=== PATIENT | female | born 1985 | race Caucasian/White ===

== ENCOUNTER 2017-08-14 04:08 | Inpatient (IN) | payer OTHER ==
[2017-08-14 04:50] LABS: #Basophils 0.1 thou/uL (0.0-0.2); #Lymphocytes 2.1 thou/uL (1.20-3.40); #Monocytes 0.5 thou/uL (0.11-0.59); #Neutrophils 5.8 thou/uL (1.40-6.50); %Basophils 0.6 % (0.0-1.0); %Eosinophils 0.2 % (0.0-10.0); %Lymphocytes 25.1 % (21.0-51.0); %Monocytes 5.6 % (0.0-10.0); %Neutrophils 68.6 % (42.0-75.0); Mean Corpuscular HGB CONC 34.5 g/dL (32.0-36.0); Mean Corpuscular Hemoglobin 30.9 pg (27.0-31.0); Mean Corpuscular Volume 89.5 fl (81.0-99.0); Platelet Count 346 thou/uL (130-400); Red Blood Cell (RBC) Count 3.57 mill/uL (4.20-5.40); White Blood Cell (WBC) Count 8.4 thou/uL (4.8-10.8)
[2017-08-14 05:00] LABS: ALT (SGPT) 10 U/L (8-55); AST (SGOT) 18 U/L (5-34); Albumin 3.7 g/dL (3.5-5.0); Alkaline Phosphatase 108 U/L (40-150); Anion Gap 13 mmol/L (10-20); BUN (Urea Nitrogen) 15 mg/dL (7.0-18.7); Bilirubin, Total 0.5 mg/dL (0.2-1.2); Calc. Creatinine Clearance 0 mL/min (70-130); Calcium 8.5 mg/dL (7.8-10.44); Carbon Dioxide 20 mmol/L (22-29); Chloride 107 mmol/L (98-107); Estimated GFR-MDRD 81; Glucose 106 mg/dL (70-105); Potassium 3.2 mmol/L (3.5-5.1); Protein, Total 6.7 g/dL (6.0-8.3); Sodium 137 mmol/L (136-145)
[2017-08-14 05:03] LABS: CKMB 2.2 ng/mL (0-6.6); Troponin I 0.038 ng/mL (< 0.028)
[2017-08-14 05:03] LABS: BHCG - Serum Negative (NEGATIVE); Pregs Control Background? CLEAR/WHITE (CLR/WHITE); Pregs Control Bar Appear? YES (CONTROL BAR)
[2017-08-14] MEDS ORDERED: Potassium Chloride 20 MEQ TAB ONE ×2 (05:24→11:29)
[2017-08-14] MEDS ORDERED: Acetaminophen 500 MG TAB ONE (05:43)
[2017-08-14] MEDS ORDERED: Sodium Chloride 0.9% 100 ML ONE (06:11)
[2017-08-14] MEDS ORDERED: Piperacillin/Tazobactam 4.5 GM VIAL ONE (06:11)
--- NOTE | 2017-08-14 08:57 | RAD ---
CHEST 1 VIEW: Date: 08/14/17 HISTORY: Chest pain. FINDINGS: Cardiac silhouette is magnified and upper limits of normal in size. Pulmonary vasculature is engorged with multifocal ill-defined patchy infiltrates throughout each lung, most pronounced at the right jennifer ng base. Small amount of right pleural fluid is apparent. Mediastinum is midline. No evidence of pneu mothorax. IMPRESSION: Borderline pulmonary vascular congestion with multifocal patchy infiltrates. Please see separate repo rt regarding CT chest performed on the same date. POS: [facility]
[2017-08-14] MEDS ORDERED: Senokot 8.6 MG TAB PO PRN (09:20)
[2017-08-14] MEDS ORDERED: Mag-Al 1200 mg/1200 mg/30 ML UDCUP PO PRN (09:20)
[2017-08-14] MEDS ORDERED: Chloraseptic Spray 180 ml Bottle PO PRN (09:20)
[2017-08-14] MEDS ORDERED: Sodium Chloride 0.65% Nasal 44 ML BOT EA NARE PRN (09:20)
[2017-08-14] MEDS ORDERED: Eucerin (Mineral Oil/Petrolatum,White) 30 gm Jar TOP PRN (09:20)
[2017-08-14] MEDS ORDERED: Loratadine 10 MG TAB PO PRN (09:20)
[2017-08-14] MEDS ORDERED: Ondansetron HCl/PF 4 MG/2 ML Vial IVP PRN (09:20)
[2017-08-14] MEDS ORDERED: Loperamide HCl 2 MG CAP PO PRN (09:20)
[2017-08-14] MEDS ORDERED: Artificial Tears 18 DROP/0.9 ML EA EYE PRN (09:20)
[2017-08-14] MEDS ORDERED: Ondansetron ODT 4 MG TAB PO PRN (09:20)
[2017-08-14] MEDS ORDERED: Diabetic Tussin 200 MG/10 ML UDCUP PO PRN (09:20)
[2017-08-14] MEDS ORDERED: Zolpidem Tartrate 5 MG TAB PO PRN (09:20)
[2017-08-14] MEDS ORDERED: Labetalol HCl 100 MG/20 ML VIAL SLOW IVP PRN (09:20)
[2017-08-14] MEDS ORDERED: Milk Of Magnesia 30 ML UDCUP PO PRN (09:20)
[2017-08-14] MEDS ORDERED: Acetaminophen 325 MG TAB PO PRN (09:20)
[2017-08-14] MEDS ORDERED: HYDROcodone/Acetaminophen 5/325 mg Tablet PO PRN (09:20)
[2017-08-14] MEDS ORDERED: Enoxaparin Sodium 40 MG/0.4 ML SYRINGE SC SCH (10:00)
[2017-08-14] MEDS ORDERED: Prenatal Vitamin 1 TAB PO SCH (10:00)
[2017-08-14] MEDS ORDERED: Potassium Chloride 20 MEQ TAB PO SCH ×2 (10:00→18:45)
[2017-08-14] MEDS ORDERED: Famotidine 20 MG TAB PO SCH (10:00)
[2017-08-14 10:10] LABS: Bilirubin Negative (Negative); Blood, Urine Small (Negative); Clarity CLEAR (Clear); Glucose, Urine (Dipstick) Negative (Negative); Leukocyte Negative (Negative); Nitrite Negative (Negative); Protein, Urine (Dipstick) Negative (Neg-Trace); Urobilinogen 0.2 mg/dL (0.2-1.0)
[2017-08-14 10:13] LABS: Bacteria/HPF None Seen HPF (None Seen); Hyaline Casts/LPF 0-3 HYALINE CAST LPF (0-3 Hyaline); RBC/HPF 0-3 HPF (0-3); Squamous Epithelial None Seen HPF (0-3); WBC/HPF 0-3 HPF (0-3)
[2017-08-14 10:14] LABS: Specific Gravity, Urine 1.055 (1.002-1.036)
[2017-08-14] MEDS ORDERED: Enoxaparin Sodium 40 MG/0.4 ML SYRINGE ONE (11:29)
[2017-08-14] MEDS ORDERED: Famotidine 20 MG TAB ONE (11:29)
--- NOTE | 2017-08-14 11:29 | CT ---
PRELIMINARY REPORT/[facility]/EMERGENTY AFTER-HOURS PROCEDURE CT Angiography Chest With Intravenous Contrast CLINICAL HISTORY: 31 years old, female; Pain; Chest pain; Patient HX: Pt reports chest pain x 1.5 weeks. Worse tonight with inspiration. Pt reports "when i laid down i felt like i was going to drown. " no history of card iac problems. Pt is 3 weeks post . Pt reports subjective fever. TECHNIQUE: Axial computed tomographic angiography images of the chest with intravenous contrast using pulmonary embolism protocol. MIP reconstructed images were created and reviewed. Oblique reformatted images wer e created and reviewed. COMPARISON: No relevant prior studies available. FINDINGS: Pulmonary arteries: No pulmonary embolism. Aorta: Unremarkable. Inferior vena cava: Reflux of contrast in the IVC and hepatic veins. Lungs: Right greater than left patchy groundglass opacities throughout the lung parenchyma. Pleural space: Small bilateral pleural effusions. No pneumothorax. Heart: Unremarkable. Bones/joints: No acute fracture. No dislocation. Soft tissues: Unremarkable. Lymph nodes: No enlarged lymph nodes. IMPRESSION: 1. No evidence of pulmonary thromboembolism. 2. Right greater than left patchy ground glass opacities throughout the lung parenchyma. The differen tial diagnosis for ground glass opacity is extensive and includes pulmonary edema and hemorrhage, int erstitial pneumonias (UIP, DIP, LIP, and acute), hypersensitivity pneumonia, atypical infectious pneumonias such as Pneumocystis carinii, mycoplasma, or CMV pneumonia, and cryptogenic org anizing pneumonia. Correlate clinically. 3. Small bilateral pleural effusions. Thank you for allowing us to participate in the care of your patient. Dictated and Authenticated by: Paulo Saab MD 08/14/2017 5:10 AM Central Time ([place] & [place]) FINAL REPORT EMERGENCY AFTER HOURS CT ARTERIOGRAM CHEST WITH IV CONTRAST AND 3D MIP IMAGING: Date: 08/14/17 Time: 0452 hours HISTORY: Chest pain. Dyspnea. FINDINGS: Findings agree with the preliminary report by [facility]. There is no CT evidence of pulmonary embolus. Mul tifocal pneumonitis is confirmed. Small bilateral pleural effusions. POS: [facility]
--- NOTE | 2017-08-14 11:45 | HP ---
PRIMARY CARE PHYSICIAN: [facility] call admission. REASON FOR ADMISSION: Increasing shortness of breath, hypoxia, tachycardia (new onset car diomyopathy, suspected pneumonia). HISTORY OF PRESENT ILLNESS: A 31-year-old female, who has past medical history of depression. She h ad normal vaginal delivery on 07/26/2017. Subsequently, the patient started feeling increasing short ness of breath. She was getting out of breath after walking a few distances. She started also feeli ng orthopnea and she was waking up with shortness of breath for the last 2 to 3 days. Her condition was kept getting worse. She was having cough productive of scant amount of sputum. She denies any l ower extremity edema. She denies any calf tenderness. She denies any chest pain or pleurisy. She d enies any fever or chills. She denies any flu-like illness. She denies any sick exposure or recent travel. She denies any syncopal episode. She denies any UTI symptoms. She denies any constipation, diarrhea , melena or hematochezia. In the emergency room, this patient was tachycardic and tachypneic as well as mildly hypoxic. She wa s hypertensive. She had a chest x-ray in the emergency room, which showed pulmonary vascular congest ion and multifocal patchy infiltration. CT angio was performed, which showed no evidence of pulmonar y embolism, but patchy ground glass opacity throughout the lung parenchyma. The patient was given va ncomycin and Zosyn in the emergency room for suspected pneumonia. The patient had potassium low and potassium chloride was also given orally and she was given some IV fluid. When I saw this patient, a t that time, the patient was having tachycardia. She was maintaining saturation with nasal cannula a nd she was vitals lara stable. Her BNP is also elevated. She is afebrile. At that point, we decide d to change her status from IMCU admission to telemetry floor. ALLERGIES: No known drug allergy. CURRENT HOME MEDICATIONS: vitamin 1 tablet p.o. daily, Zoloft 25 mg p.o. daily, Motrin 800 mg q.8 hourly. p.r.n., and Tylenol #3 one tablet q.4 hourly p.r.n. REVIEW OF SYSTEMS: The following complete review of systems was negative, unless otherwise mentioned in the HPI or below: Constitutional: Weight loss or gain, ability to conduct usual activities. Skin: Rash, itching. Eyes: Double vision, pain. ENT/Mouth: Nose bleeding, neck stiffness, pain, tenderness. Cardiovascular: Palpitations, dyspnea on exertion, orthopnea. Respiratory: Shortness of breath, wheezing, cough, hemoptysis, fever or night sweats. Gastrointestinal: Poor appetite, abdominal pain, heartburn, nausea, vomiting, constipation, or diarr hea. Genitourinary: Urgency, frequency, dysuria, nocturia. Musculoskeletal: Pain, swelling. Neurologic/Psychiatric: Anxiety, depression. Allergy/Immunologic: Skin rash, bleeding tendency. Please see my HPI for pertinent positive and negative. All other review of systems reviewed and nega tive except as mentioned in the HPI. PAST MEDICAL HISTORY: Mitral valve prolapse, hypertension and borderline diabetes during . PAST SURGICAL HISTORY: Reviewed and negative. PAST PSYCHIATRIC HISTORY: Anxiety and depression. SOCIAL HISTORY: The patient is . She lives at home with her . She smokes about half pack per day. She denies any alcohol or other illicit drug abuse. OBSTETRICAL/GYNECOLOGICAL HISTORY: The patient had total five pregnancies. She has total of 3 kids alive and 2 miscarriages. FAMILY HISTORY: No strong family history of premature coronary artery disease, stroke or cancer. EMERGENCY ROOM COURSE: The patient has received vancomycin, Zosyn, IV fluid, and potassium chloride. PHYSICAL EXAMINATION: VITAL SIGNS: On arrival, blood pressure 120/104, pulse 118, respiratory rate 24, temperature 99.6, s aturation 95% on 3 liter oxygen. Weight 58 kilograms. GENERAL: The patient is currently alert, awake, tachypneic, tachycardic, hypertensive, no obvious ac karina distress. HEENT: Head: Normocephalic, atraumatic. Eyes: Pupils round, reactive to light. Extraocular muscl es are intact. ENT: Oropharynx within normal limits. Moist mucous membranes. No oral lesion, no p haryngeal erythema, no exudate. NECK: Supple, no JVD, no thyromegaly, no carotid bruit, no jugular venous distention. LUNGS: Bibasilar rales noted, coarse breath sounds. No wheezing, no rhonchi. CARDIAC: S1, S2 regular, tachycardia, soft systolic murmur present. ABDOMEN: Soft, bowel sounds present, nontender, nondistended. No organomegaly, no mass, no suprapub ic tenderness. BACK: Unremarkable, no CVA tenderness. EXTREMITIES: Upper extremity: Passive movements of all joints are normal. Lower extremities: No e ava, no calf tenderness. Good distal pulsation. SKIN: No skin rash. HEMATOLOGIC: No lymphadenopathy. PSYCHIATRIC: Normal affect. SIGNIFICANT LABS: EKG showing sinus tachycardia, nonspecific ST-T changes in inferolateral lead. Ch est x-ray showing pulmonary vascular congestion, multifocal infiltration. CT angio showing no eviden ce of PE, ground glass opacity throughout the lung parenchyma. CBC: WBC 8.4, hemoglobin 11.0, platelets 346, ESR is 41. D-dimer is 0.86. BMP: Sodium 137, potassium 3.2, chloride 107, carbon dioxide 20, BUN 15, creatinine 0.82, glucose 10 6, calcium 8.5. LFT: AST 18, ALT 10, alkaline phosphatase 108, albumin 3.7, CK-MB 2.2. Troponin I is 0.038, then 0. 040. CRP is 2.35. BNP is 1642, magnesium 1.7. Urinalysis is unremarkable. ASSESSMENT AND PLAN: 1. New onset cardiomyopathy. At this point, this patient has a classic history of dyspne a on exertion, orthopnea, paroxysmal nocturnal dyspnea, as well as elevated BNP. The patient's chest x-ray also showing pulmonary vascular congestion and CT chest also supports pulmonary vascular conge stion. She has elevated BNP and based on appropriate clinical scenario, we are suspecting cardiomyopathy. We will obtain echocardiography to assess ejection fraction and other structural ab normality. This patient will be treated with Lasix 20 mg IV b.i.d. We will monitor weight, renal fu nction and electrolytes, and replace accordingly. Depending upon echocardiographic finding, we will consider Cardiology evaluation. We will monitor on telemetry floor. 2. Elevated troponin, likely due to demand ischemia. We will do total 3 sets of cardiac enzymes. W e will continue aspirin 81 mg p.o. daily. Echocardiography will be done. We will check lipid profil e tomorrow morning for risk stratification. 3. Hypokalemia. Magnesium checked and it is normal. We will replace potassium chloride 20 mEq p.o. daily and replace more if needed. 4. Anemia, normocytic, normochromic. We will continue vitamin daily while in the hospital. 5. Anxiety and depression. Continue Zoloft 50 mg p.o. daily. 6. Elevated D-dimer, but negative CT angio. 7. Suspected pneumonia. We will continue Zosyn 3.375 grams IV q.6 hourly. 8. Deep venous thrombosis prophylaxis, Lovenox 40 mg subcu daily. 9. Gastrointestinal prophylaxis, Pepcid 20 mg p.o. b.i.d. 9. Code status: The patient is FULL CODE. The patient's is surrogate decision maker. 10. Tobacco abuse disorder. Smoking cessation counseling given. We will offer nicotine patch if ne eded. Disposition plan based on clinical course. We are expecting the patient's stay in hospital more than 2 midnights. Plan of care discussed with the patient in detail.
[2017-08-14] MEDS: Piperacillin/Tazobactam 3.375 GM in Sodium Chloride 0.9% 100 ML IVPB SCH ×3 (12:07→23:10)
[2017-08-14 12:12] VITALS: BMI 21.7
[2017-08-14 13:27] LABS: Troponin I 0.029 ng/mL (< 0.028)
[2017-08-14] MEDS: Furosemide 20 MG/2 ML VIAL SLOW IVP SCH ×2 (13:28→23:10)
[2017-08-14] MEDS ORDERED: ISOVUE-370 76%-LOCM 1 ML ONE (14:35)
[2017-08-14] MEDS: Nicotine 21 MG PATCH TOP SCH (17:15)
--- NOTE | 2017-08-14 18:42 | PDOC.CTH ---
Cardiology Progress Note - Objective Vital Signs Temp Pulse Resp BP Pulse Ox 08/14/17 16:36 98.6 F 75 16 130/91 H 94 L 08/14/17 12:16 97.8 F 61 20 96 08/14/17 12:00 97.8 F 122 H 20 129/87 96 Weight 114 lb 10.246 oz 08/13/17 08/14/17 08/15/17 06:59 06:59 06:59 Intake Total 680 Output Total 1550 Balance -870 - Labs Result Diagrams: 08/14/17 04:44 08/14/17 04:44 Troponin/CKMB CK-MB (CK-2) 2.2 ng/mL (0-6.6) 08/14/17 04:44 Troponin I 0.029 ng/mL (< 0.028) H 08/14/17 12:47 - Assessment/Plan <Progress note> Echo result showed EF 10-15%. Lasix was increased to 20mg IV TID. Also Lasix 20mg IV and Kcl 20mEq x 1 now. Plan to start BBlocker and SANDRA when the pt receive baby formula to feed her new-born baby.
[2017-08-14] MEDS ORDERED: Furosemide 20 MG/2 ML VIAL SLOW IVP SCH (18:45)
[2017-08-14] MEDS: Famotidine 20 MG TAB PO SCH (20:07)
[2017-08-14] MEDS: Lisinopril 2.5 MG TAB PO SCH (20:08)
[2017-08-14] MEDS ORDERED: Carvedilol 3.125 MG TAB PO SCH (21:00)
[2017-08-15] MEDS: Piperacillin/Tazobactam 3.375 GM in Sodium Chloride 0.9% 100 ML IVPB SCH (05:24)
[2017-08-15] MEDS: Furosemide 20 MG/2 ML VIAL SLOW IVP SCH ×3 (05:24→14:10)
[2017-08-15 05:34] LABS: #Lymphocytes 2.5 thou/uL (1.20-3.40); #Monocytes 0.7 thou/uL (0.11-0.59); #Neutrophils 3.3 thou/uL (1.40-6.50); %Basophils 0.7 % (0.0-1.0); %Eosinophils 0.7 % (0.0-10.0); %Lymphocytes 37.8 % (21.0-51.0); %Monocytes 10.2 % (0.0-10.0); %Neutrophils 50.5 % (42.0-75.0); Hemoglobin 10.7 g/dL (12.0-16.0); Mean Corpuscular HGB CONC 33.4 g/dL (32.0-36.0); Mean Corpuscular Hemoglobin 30.1 pg (27.0-31.0); Mean Corpuscular Volume 90.4 fl (81.0-99.0); Mean Platelet Volume 7.2 fL (7.4-10.4); Platelet Count 323 thou/uL (130-400); RBC Distribution Width 13.8 % (11.5-14.5); Red Blood Cell (RBC) Count 3.56 mill/uL (4.20-5.40); White Blood Cell (WBC) Count 6.5 thou/uL (4.8-10.8)
[2017-08-15 05:43] LABS: ALT (SGPT) 9 U/L (8-55); AST (SGOT) 12 U/L (5-34); Albumin 3.5 g/dL (3.5-5.0); Alkaline Phosphatase 97 U/L (40-150); Anion Gap 11 mmol/L (10-20); BUN (Urea Nitrogen) 13 mg/dL (7.0-18.7); Bilirubin, Total 0.5 mg/dL (0.2-1.2); Calc. Creatinine Clearance 74 mL/min (70-130); Calcium 8.4 mg/dL (7.8-10.44); Carbon Dioxide 23 mmol/L (22-29); Chloride 106 mmol/L (98-107); Estimated GFR-MDRD 73; Globulin 2.8 g/dL (2.4-3.5); Glucose 102 mg/dL (70-105); Magnesium 1.8 mg/dL (1.6-2.6); Potassium 3.4 mmol/L (3.5-5.1); Protein, Total 6.3 g/dL (6.0-8.3); Sodium 137 mmol/L (136-145); Uric Acid 3.5 mg/dL (2.6-6.0)
[2017-08-15] MEDS: Enoxaparin Sodium 40 MG/0.4 ML SYRINGE SC SCH (08:14)
[2017-08-15] MEDS: Prenatal Vitamin 1 TAB PO SCH (08:14)
[2017-08-15] MEDS: Carvedilol 3.125 MG TAB PO SCH ×2 (08:14→16:12)
[2017-08-15] MEDS: Famotidine 20 MG TAB PO SCH ×2 (08:14→19:50)
[2017-08-15] MEDS: Magnesium Oxide 400 MG TAB PO SCH (08:15)
[2017-08-15] MEDS: Saccharomyces boulardii 250 MG CAP PO SCH (08:15)
[2017-08-15] MEDS: Potassium Chloride 20 MEQ TAB PO SCH (08:15)
[2017-08-15] MEDS ORDERED: Amoxicillin/Potassium Clav 875 MG TAB PO SCH (09:00)
--- NOTE | 2017-08-15 09:47 | PDOC.PN ---
- Subjective Encounter Start Date: 08/15/17 Encounter Start Time: 08:30 -: old records requested/rev Patient seen and examined. No new complaints. No overnight events less dyspnea, no fever, no chest pain - Objective Resuscitation Status: Resuscitation Status FULL:Full Resuscitation MAR Reviewed: Yes Vital Signs & Weight: Vital Signs (12 hours) Temp Pulse Resp BP BP Pulse Ox 08/15/17 08:07 97.9 F 106 H 16 110/73 96 08/15/17 03:51 97.9 F 100 18 113/74 97 Weight Weight 4.144 oz I&O: 08/14/17 08/15/17 08/16/17 06:59 06:59 06:59 Intake Total 680 Output Total 1550 Balance -870 Result Diagrams: 08/15/17 05:04 08/15/17 05:04 Radiology Reviewed by me: Yes (echo- low EF) EKG Reviewed by me: Yes (sinus tachycardia) Phys Exam - Physical Examination Constitutional: NAD HEENT: PERRLA, moist MMs, sclera anicteric Neck: no JVD, supple Respiratory: no wheezing, no rhonchi basal rales Cardiovascular: RRR, no significant murmur, no rub Gastrointestinal: soft, non-tender, no distention, positive bowel sounds Musculoskeletal: no edema, pulses present Neurological: non-focal, normal sensation, moves all 4 limbs Psychiatric: normal affect, A&O x 3 Skin: no rash, normal turgor Dx/Plan (1) Acute systolic heart failure Code(s): I50.21 - ACUTE SYSTOLIC (CONGESTIVE) HEART FAILURE Status: Acute (2) Demand ischemia of myocardium Code(s): I24.8 - OTHER FORMS OF ACUTE ISCHEMIC HEART DISEASE Status: Acute (3) Hypokalemia Code(s): E87.6 - HYPOKALEMIA Status: Acute (4) cardiomyopathy Code(s): O90.3 - PERIPARTUM CARDIOMYOPATHY Status: Acute (5) Anemia, normocytic normochromic Code(s): D64.9 - ANEMIA, UNSPECIFIED Status: Chronic (6) Anxiety and depression Code(s): F41.9 - ANXIETY DISORDER, UNSPECIFIED; F32.9 - MAJOR DEPRESSIVE DISORDER, SINGLE EPISODE, UNSPECIFIED Status: Chronic (7) Tobacco abuse Code(s): Z72.0 - TOBACCO USE Status: Chronic (8) Multifocal pneumonia Code(s): J18.9 - PNEUMONIA, UNSPECIFIED ORGANISM Status: Suspected - Plan cont current plan of care, plan discussed w/ family, continue antibiotics * continue lasix * added coreg and lisinopril * will add aldactone * replace potassium * repeat labs tomorrow * cardiac rehab * medication reviewed as below * symptomatic treatment * DC zosyn * start augmentin. Review of Systems - Review of Systems Constitutional: negative: fever, chills, sweats, weakness, malaise, other ENT: negative: Ear Pain, Ear Discharge, Nose Pain, Nose Discharge, Nose Congestion, Mouth Pain, Mouth Swelling, Throat Pain, Throat Swelling, Other Respiratory: Shortness of Breath, SOB with Excertion. negative: Cough, Dry, Hemoptysis, Pleuritic Pain, Sputum, Wheezing Cardiovascular: orthopnea. negative: chest pain, palpitations, paroxysmal nocturnal dyspnea, edema, light headedness, other Gastrointestinal: negative: Nausea, Vomiting, Abdominal Pain, Diarrhea, Constipation, Melena, Hematochezia, Other Genitourinary: negative: Dysuria, Frequency, Incontinence, Hematuria, Retention , Other Musculoskeletal: negative: Neck Pain, Shoulder Pain, Arm Pain, Back Pain, Hand Pain, Leg Pain, Foot Pain, Other Skin: negative: Rash, Lesions, Valeriy, Bruising, Other - Medications/Allergies Allergies/Adverse Reactions: Allergies Allergy/AdvReac Type Severity Reaction Status Date / Time No Known Drug Allergies Allergy Verified 08/14/17 09:33 Medications: Current Medications Acetaminophen (Tylenol) 650 mg PO Q4H PRN PRN Reason: Headache/Fever or Pain Last Admin: 08/14/17 18:20 Dose: 650 mg Hydrocodone Bitart/Acetaminophen ([place] 5/325) 1 tab PO Q4H PRN PRN Reason: Moderate Pain (4-6) Last Admin: 08/14/17 23:13 Dose: 1 tab Al Hydroxide/Mg Hydroxide (Maalox) 30 ml PO Q6H PRN PRN Reason: Heartburn or Indigestion Amoxicillin/Clavulanate Potassium (Augmentin) 875 mg PO Q12HR [facility] Last Admin: 08/15/17 08:13 Dose: 875 mg Artificial Tears (Tears Naturale) 0 drop EA EYE PRN PRN PRN Reason: Dry Eyes Aspirin (Aspirin Chewable) 81 mg PO DAILY [facility] Last Admin: 08/15/17 08:14 Dose: 81 mg Carvedilol (Coreg) 3.125 mg PO BID-[facility] Last Admin: 08/15/17 08:14 Dose: 3.125 mg Enoxaparin Sodium (Lovenox) 40 mg SC 0900 [facility] Last Admin: 08/15/17 08:14 Dose: 40 mg Famotidine (Pepcid) 20 mg PO BID [facility] Last Admin: 08/15/17 08:14 Dose: 20 mg Furosemide (Lasix) 20 mg SLOW IVP 0600,1400 [facility] Last Admin: 08/15/17 05:24 Dose: 20 mg Guaifenesin (Robitussin Sf) 200 mg PO Q4H PRN PRN Reason: Cough Labetalol HCl (Normodyne) 10 mg SLOW IVP Q4H PRN PRN Reason: Systolic BP > 180 Lisinopril (Zestril) 2.5 mg PO 2100 [facility] Last Admin: 08/14/17 20:08 Dose: 2.5 mg Loperamide HCl (Imodium) 2 mg PO PRN PRN PRN Reason: Diarrhea/Loose Stools Loratadine (Claritin) 10 mg PO DAILYPRN PRN PRN Reason: Sinus Symptoms Magnesium Hydroxide (Milk Of Magnesium) 30 ml PO DAILYPRN PRN PRN Reason: Constipation Magnesium Oxide (Magnesium Oxide) 400 mg PO DAILY [facility] Last Admin: 08/15/17 08:15 Dose: 400 mg Mineral Oil/White Petrolatum (Eucerin Cream) 0 gm TOP BIDPRN PRN PRN Reason: Dry Skin Nicotine (Nicoderm Patch) 21 mg TOP Q24HR [facility] Last Admin: 08/14/17 17:15 Dose: 21 mg Ondansetron HCl (Zofran Odt) 4 mg PO Q6H PRN PRN Reason: Nausea/Vomiting Ondansetron HCl (Zofran) 4 mg IVP Q6H PRN PRN Reason: Nausea/Vomiting Phenol (Chloraseptic Marine 180 Ml Bot) 0 ml PO PRN PRN PRN Reason: Sore Throat Potassium Chloride (K-Dur) 20 meq PO QAM-[facility] Last Admin: 08/15/17 08:15 Dose: 20 meq Multivit/Folic Acid/Iron ( Vitamin) 1 tab PO DAILY [facility] Last Admin: 08/15/17 08:14 Dose: 1 tab Saccharomyces Boulardii (Florastor) 250 mg PO DAILY [facility] Last Admin: 08/15/17 08:15 Dose: 250 mg Senna (Senokot) 2 tab PO HSPRN PRN PRN Reason: Constipation Sertraline HCl (Zoloft) 50 mg PO DAILY [facility] Last Admin: 08/15/17 08:13 Dose: 50 mg Sodium Chloride ([place]arker Nasal Marine 0.65%) 0 ml EA NARE QIDPRN PRN PRN Reason: Nasal Congestion Zolpidem Tartrate (Ambien) 5 mg PO HSPRN PRN PRN Reason: Insomnia
--- NOTE | 2017-08-15 15:07 | PDOC.CTH ---
<Nelly Wayne - Last Filed: 08/15/17 15:05> Cardiology Progress Note - Subjective The pt seen and examined. No overnight events. She stated she can breath better than yesterday. She denied dizziness or lightheadedness, CP or discomfort in her chest, or other cardiac complaints. - Objective Vital Signs Temp Pulse Pulse Pulse Resp BP BP 08/15/17 12:40 98.9 F 98 16 08/15/17 08:36 94 113 H 123/92 H 119/64 08/15/17 08:07 97.9 F 106 H 16 08/15/17 03:51 97.9 F 100 18 BP BP Pulse Ox Pulse Ox Pulse Ox 08/15/17 12:40 113/67 94 L 08/15/17 08:36 98 94 L 08/15/17 08:07 110/73 96 08/15/17 03:51 113/74 97 Weight 4.144 oz 08/14/17 08/15/17 08/16/17 06:59 06:59 06:59 Intake Total 680 Output Total 1550 Balance -870 - Physical Examination General/Neuro: alert & oriented x3 Neck: no JVD present Heart: RRR Abdomen: soft Extremities: other: (No edema) - Telemetry Telemetry Rhythm: SR 90s - Labs Result Diagrams: 08/15/17 05:04 08/15/17 05:04 Troponin/CKMB CK-MB (CK-2) 2.2 ng/mL (0-6.6) 08/14/17 04:44 Troponin I 0.029 ng/mL (< 0.028) H 08/14/17 12:47 - Assessment/Plan 1. Acute on Chronic Systolic HF - improving with BBlocker, SANDRA, and Spironolactone. cont. to monitor 2. CMY - Echo on 08/14/17 showed EF 10-15%, dilated LV, dilated LA, mild-mod MR, and mild TR. 3. Tachycardia - Remains in SR with HR 80-90s with Coreg 3.125mg BID; cont. to monitor on tele 4. Anemia - slightly decreased today. cont. to monitor 5. HypoKalemia - replaced by her PCP today 6. PNA - on antibiotics by PCP 7. Current smoker - Smoking cessation education given to the pt MAR reviewed * Since she is on SANDRA, she is not breast feeding to her baby. Review of Systems - Review of Systems Constitutional: reports: no symptoms reported EENTM: reports: no symptoms reported Respiratory: reports: no symptoms reported Cardiac (ROS): reports: no symptoms reported ABD/GI: reports: no symptoms reported : reports: no symptoms reported Musculoskeletal: reports: no symptoms reported Skin: reports: no symptoms reported <Jocelyn Chery Demario - Last Filed: 08/15/17 19:49> Cardiology Progress Note - Objective Vital Signs Temp Pulse Pulse Pulse Resp BP BP 08/15/17 16:07 98.2 F 96 16 08/15/17 12:40 98.9 F 98 16 08/15/17 08:36 94 113 H 123/92 H 119/64 08/15/17 08:07 97.9 F 106 H 16 BP Pulse Ox Pulse Ox Pulse Ox 08/15/17 16:07 114/87 97 08/15/17 12:40 113/67 94 L 08/15/17 08:36 98 94 L 08/15/17 08:07 110/73 96 Weight 4.144 oz 08/14/17 08/15/17 08/16/17 06:59 06:59 06:59 Intake Total 680 Output Total 1550 Balance -870 - Labs Result Diagrams: 08/15/17 05:04 08/15/17 05:04 Troponin/CKMB CK-MB (CK-2) 2.2 ng/mL (0-6.6) 08/14/17 04:44 Troponin I 0.029 ng/mL (< 0.028) H 08/14/17 12:47 - Assessment/Plan Pt. was seen and eval by me. She is feeling better and diuresing. Tolerating the meds thus far. She will need a Life-vest prior to discharge.Chest clear, RRR. Severe CMY- presumably post-. I agree with the A/P by the HORTICULTURE/FLORICULTURE TEACHER.
[2017-08-15] MEDS: Nicotine 21 MG PATCH TOP SCH (16:15)
[2017-08-15] MEDS: Lisinopril 2.5 MG TAB PO SCH (19:49)
[2017-08-16] MEDS: Furosemide 20 MG/2 ML VIAL SLOW IVP SCH ×2 (05:11→13:44)
[2017-08-16] MEDS: Magnesium Oxide 400 MG TAB PO SCH (08:51)
[2017-08-16] MEDS: Potassium Chloride 20 MEQ TAB PO SCH (08:51)
[2017-08-16] MEDS: Spironolactone 25 MG TAB PO SCH (08:51)
[2017-08-16] MEDS: Prenatal Vitamin 1 TAB PO SCH (08:51)
[2017-08-16] MEDS: Carvedilol 3.125 MG TAB PO SCH (08:52)
[2017-08-16] MEDS: Saccharomyces boulardii 250 MG CAP PO SCH (08:52)
[2017-08-16] MEDS: Famotidine 20 MG TAB PO SCH ×2 (08:53→20:49)
[2017-08-16] MEDS: Enoxaparin Sodium 40 MG/0.4 ML SYRINGE SC SCH (08:56)
--- NOTE | 2017-08-16 08:58 | PDOC.PN ---
- Subjective Encounter Start Date: 08/16/17 Encounter Start Time: 06:40 Patient seen and examined. No new complaints. No overnight events pt has less dyspnea, less orthopnea, now on room air - Objective Resuscitation Status: Resuscitation Status FULL:Full Resuscitation MAR Reviewed: Yes Vital Signs & Weight: Vital Signs (12 hours) Temp Pulse Resp BP BP Pulse Ox 08/16/17 08:45 97.9 F 92 14 104/75 96 08/16/17 05:34 96 08/16/17 03:56 98.4 F 62 20 140/81 96 08/16/17 03:27 98.0 F 84 25 H 114/77 94 L Weight Weight 115 lb 15.04 oz I&O: 08/15/17 08/16/17 08/17/17 06:59 06:59 06:59 Intake Total 680 240 Output Total 1550 700 Balance -870 -460 Result Diagrams: 08/15/17 05:04 08/15/17 05:04 EKG Reviewed by me: Yes (nsr) Phys Exam - Physical Examination Constitutional: NAD HEENT: PERRLA, moist MMs, sclera anicteric Neck: no JVD, supple Respiratory: no wheezing, no rales, no rhonchi Cardiovascular: RRR, no significant murmur, no rub Gastrointestinal: soft, non-tender, no distention, positive bowel sounds Musculoskeletal: no edema, pulses present Neurological: non-focal, normal sensation, moves all 4 limbs Lymphatic: no nodes Psychiatric: normal affect, A&O x 3 Skin: no rash, normal turgor Dx/Plan (1) Acute systolic heart failure Code(s): I50.21 - ACUTE SYSTOLIC (CONGESTIVE) HEART FAILURE Status: Acute (2) Demand ischemia of myocardium Code(s): I24.8 - OTHER FORMS OF ACUTE ISCHEMIC HEART DISEASE Status: Acute (3) Hypokalemia Code(s): E87.6 - HYPOKALEMIA Status: Acute (4) cardiomyopathy Code(s): O90.3 - PERIPARTUM CARDIOMYOPATHY Status: Acute (5) Anemia, normocytic normochromic Code(s): D64.9 - ANEMIA, UNSPECIFIED Status: Chronic (6) Anxiety and depression Code(s): F41.9 - ANXIETY DISORDER, UNSPECIFIED; F32.9 - MAJOR DEPRESSIVE DISORDER, SINGLE EPISODE, UNSPECIFIED Status: Chronic (7) Tobacco abuse Code(s): Z72.0 - TOBACCO USE Status: Chronic (8) Multifocal pneumonia Code(s): J18.9 - PNEUMONIA, UNSPECIFIED ORGANISM Status: Suspected - Plan cont current plan of care, plan discussed w/ family, continue antibiotics, respiratory therapy * continue lasix, lisinopril, coreg, aldactone * as per cardiology, will need life vest * medication reviewed as below * symptomatic treatment * expecting discharge soon * cardiology following * cardiac rehab. Review of Systems - Review of Systems Eyes: negative: Pain, Vision Change, Conjunctivae Inflammation, Eyelid Inflammation, Redness, Other ENT: negative: Ear Pain, Ear Discharge, Nose Pain, Nose Discharge, Nose Congestion, Mouth Pain, Mouth Swelling, Throat Pain, Throat Swelling, Other Respiratory: negative: Cough, Dry, Shortness of Breath, Hemoptysis, SOB with Excertion, Pleuritic Pain, Sputum, Wheezing Cardiovascular: negative: chest pain, palpitations, orthopnea, paroxysmal nocturnal dyspnea, edema, light headedness, other Gastrointestinal: negative: Nausea, Vomiting, Abdominal Pain, Diarrhea, Constipation, Melena, Hematochezia, Other Genitourinary: negative: Dysuria, Frequency, Incontinence, Hematuria, Retention , Other Musculoskeletal: negative: Neck Pain, Shoulder Pain, Arm Pain, Back Pain, Hand Pain, Leg Pain, Foot Pain, Other Skin: negative: Rash, Lesions, Valeriy, Bruising, Other - Medications/Allergies Allergies/Adverse Reactions: Allergies Allergy/AdvReac Type Severity Reaction Status Date / Time No Known Drug Allergies Allergy Verified 08/14/17 09:33 Medications: Current Medications Acetaminophen (Tylenol) 650 mg PO Q4H PRN PRN Reason: Headache/Fever or Pain Last Admin: 08/14/17 18:20 Dose: 650 mg Hydrocodone Bitart/Acetaminophen ([place] 5/325) 1 tab PO Q4H PRN PRN Reason: Moderate Pain (4-6) Last Admin: 08/14/17 23:13 Dose: 1 tab Al Hydroxide/Mg Hydroxide (Maalox) 30 ml PO Q6H PRN PRN Reason: Heartburn or Indigestion Artificial Tears (Tears Naturale) 0 drop EA EYE PRN PRN PRN Reason: Dry Eyes Aspirin (Aspirin Chewable) 81 mg PO DAILY [place] Last Admin: 08/16/17 08:53 Dose: 81 mg Carvedilol (Coreg) 3.125 mg PO BID-[facility] Last Admin: 08/16/17 08:52 Dose: 3.125 mg Enoxaparin Sodium (Lovenox) 40 mg SC 0900 [facility] Last Admin: 08/16/17 08:56 Dose: 40 mg Famotidine (Pepcid) 20 mg PO BID [facility] Last Admin: 08/16/17 08:53 Dose: 20 mg Furosemide (Lasix) 20 mg SLOW IVP 0600,1400 [facility] Last Admin: 08/16/17 05:11 Dose: 20 mg Guaifenesin (Robitussin Sf) 200 mg PO Q4H PRN PRN Reason: Cough Labetalol HCl (Normodyne) 10 mg SLOW IVP Q4H PRN PRN Reason: Systolic BP > 180 Lisinopril (Zestril) 2.5 mg PO 2100 [facility] Last Admin: 08/15/17 19:49 Dose: 2.5 mg Loperamide HCl (Imodium) 2 mg PO PRN PRN PRN Reason: Diarrhea/Loose Stools Loratadine (Claritin) 10 mg PO DAILYPRN PRN PRN Reason: Sinus Symptoms Magnesium Hydroxide (Milk Of Magnesium) 30 ml PO DAILYPRN PRN PRN Reason: Constipation Magnesium Oxide (Magnesium Oxide) 400 mg PO DAILY [facility] Last Admin: 08/16/17 08:51 Dose: 400 mg Mineral Oil/White Petrolatum (Eucerin Cream) 0 gm TOP BIDPRN PRN PRN Reason: Dry Skin Nicotine (Nicoderm Patch) 21 mg TOP Q24HR [facility] Last Admin: 08/15/17 16:15 Dose: 21 mg Ondansetron HCl (Zofran Odt) 4 mg PO Q6H PRN PRN Reason: Nausea/Vomiting Ondansetron HCl (Zofran) 4 mg IVP Q6H PRN PRN Reason: Nausea/Vomiting Phenol (Chloraseptic Ariton 180 Ml Bot) 0 ml PO PRN PRN PRN Reason: Sore Throat Potassium Chloride (K-Dur) 20 meq PO QAM-[facility] Last Admin: 08/16/17 08:51 Dose: 20 meq Multivit/Folic Acid/Iron ( Vitamin) 1 tab PO DAILY [facility] Last Admin: 08/16/17 08:51 Dose: 1 tab Saccharomyces Boulardii (Florastor) 250 mg PO DAILY [facility] Last Admin: 08/16/17 08:52 Dose: 250 mg Senna (Senokot) 2 tab PO HSPRN PRN PRN Reason: Constipation Sertraline HCl (Zoloft) 50 mg PO DAILY [facility] Last Admin: 08/16/17 08:52 Dose: 50 mg Sodium Chloride (Larimer Nasal Ariton 0.65%) 0 ml EA NARE QIDPRN PRN PRN Reason: Nasal Congestion Spironolactone (Aldactone) 25 mg PO QAM-[facility] Last Admin: 08/16/17 08:51 Dose: 25 mg Zolpidem Tartrate (Ambien) 5 mg PO HSPRN PRN PRN Reason: Insomnia
--- NOTE | 2017-08-16 09:05 | CON ---
DATE OF CONSULTATION: 08/15/2017 REASON FOR CONSULTATION: Pulmonary infiltrates. HISTORY OF PRESENT ILLNESS: A 31-year-old with history of mitral valve prolapse , hypertension, and recent normal vaginal delivery on 07/26/2017 with progressively worsening dyspnea, which exacerbated 2 to 3 days prior to admission associated cough with scant sputum production. No fever, no chest pain. No headaches, no sore throat, odynophagia, dysphagia, no toothache. No abdominal pain or diarrhea. No genitourinary symptoms. On arrival, she was tachypneic and tachycardic, mildly hypoxic, hypertensive. Chest x-ray showed diffuse pulmonary infiltrates. CT angio did not show any evidence of pulmonary embolism. She was given broad spectrum antimicrobial coverage. An echocardiogram showed an ejection fraction of 15%, recently with elevated BNP. The patient has been managed with IV diuresis and Cardiology has been consulted. They are going to start beta blockers and SANDRA inhibitors as soon as the patient received the baby formula to feed her baby. Currently, she is much more comfortable, her two kids are in the bed with her. REVIEW OF SYSTEMS: A 10-point review of systems shows improvement in dyspnea. Other areas of the review of systems are negative. PAST MEDICAL HISTORY: Gestational diabetes, hypertension, and mitral valve prolapse. PAST SURGICAL HISTORY: Negative. SOCIAL HISTORY: She is . [place] works, but they were behind in payments of their rent they made a payment, but the landlord evicted them from their apartment [place] She smokes, trying to quit. No alcoholic beverage or illicit drug use. FAMILY HISTORY: Noncontributory. CURRENT MEDICATIONS: Include hydrocodone, Maalox, Augmentin, aspirin, Coreg, Lovenox, Pepcid, Robitussin, , Imodium, Claritin, magnesium, Zofran, Chloraseptic, Senokot, Zoloft, lisinopril, furosemide, spironolactone, Ambien. PHYSICAL EXAMINATION: VITAL SIGNS: T-max 99, blood pressure 114/87, pulse is 96, respiration 16, O2 sat 97%. GENERAL: There is no distress. SKIN: Normal. Peripheral IV access. The patient is voiding spontaneously. HEENT: Noncontributory. NECK: No jugular vein distention. LUNGS: With faint basilar crackles. HEART: S1, S2, regular rate without S3. ABDOMEN: Soft, not distended or tender. EXTREMITIES: No joint inflammatory activity. No edema. Moves all extremities equally. LABORATORY DATA: White cell count 8.4 and 6.5. Differential showing fairly normal. Hemoglobin 10.7 and INR was not done. Creatinine normal. Liver profile normal. Troponin 0.038. The last cardiology progress note, acute on chronic systolic heart failure, improving with the current management. Reports include an echocardiogram with ejection fraction of 15%, no significant valvular abnormality noted. She has moderate mitral regurgitation, probably from the cardiomegaly and CHF. CT of chest angiogram with no evidence of pulmonary embolism, multifocal infiltrates. ASSESSMENT: cardiomyopathy has been managed, with marked improvement. Recommend discontinuation of antimicrobial therapy. MTDD
--- NOTE | 2017-08-16 12:44 | CON ---
DATE OF CONSULTATION: 08/14/2017 ROOM NO: 252 She does not have a primary care doctor at this moment. Thus, the patient's primary mud jack nozzleman is going to be Dr. Deanna Chery. REFERRING: Dr. Sexton. No PCP provider at this moment. REASON FOR CARDIOLOGY CONSULTATION: Tachycardia and chest pain. HISTORY OF PRESENT ILLNESS: Ms. Gallegos is a 31-year-old female with a past medical history o f anxiety and depression and diabetes, hypertension during and a recent vaginal delivery on 07/26/2017. After the patient's normal vaginal delivery on the 07/26/2017, she started having achin ess pain below the breasts, 4-7/10 on the pain scale, and it is hard to take a deep breath and also s he started having tightness in her epigastric area and eventually she could not lay on the bed to sle ep. So she needs at least a 4 pillows to elevate her head to sleep at night. She planned to go to ee the primary care doctor. However, the patient's symptoms become worsened last night, but she deci ded to present to the [facility] for further evaluation and treatment. She eliazar es numbness to the left upper extremity, nausea, or vomiting. During the episode, she received the L asix 20 mg IV push when she was transferred to the telemetry floor and she void at least 1 liters. S he states she fell slightly improved shortness of breath; however, she still continued having dyspnea with exertion. She does not have any significant cardiac history except that hypertension during th e and the patient has a CT angio to the chest due to the elevated D-dimer, which show no ev idence of pulmonary embolus, but patchy ground glass opacities throughout the lungs, which indicated possible pneumonia. PAST MEDICAL HISTORY: Positive for anxiety and depression and sometimes she had a hallucination and mitral valve prolapse, which was diagnosed with 1 at the age of 18 and the borderline diabetes and hy pertension during the . PAST SURGICAL HISTORY: None. FAMILY HISTORY: Patient's mother had myocardial infarction at the age of 50. SOCIAL HISTORY: She is , however, she is living at at this moment. She smokes half pac k a cigarette a day. She denies any alcohol or illicit drug abuse. ALLERGIES: No known drug allergies. HOME MEDICATIONS: 1. vitamin 1 tablet daily. 2. Zoloft 25 mg once a day. 3. Motrin 800 mg every 8 hours as needed for vaginal pain. However, she says she have hi m take the medicine for a little while and Tylenol #3 one tablet every 4 hours as needed for postpart um pain. Again, she says she has been taking this medicine for a little while either. REVIEW OF SYSTEMS: The following complete review of systems was negative, unless otherwise mentioned in the HPI or below. Constitutional: No weight loss or gain, sense of well being, ability to condu ct usual activities, exercise tolerance. Skin: Rash, itching, change in hair growth. Nail changes, breast lumps, tenderness, swelling, nipple discharge. Eyes: Vision change, double vision, tearing, blind spot pain. ENT: Headache, vertigo, nasal bleeding, cold, obstruction, discharge dental diffi culty gingival bleeding, denture, neck stiffness, pain, tenderness, mass in the thyroid or other area s. Cardiovascular: Precordial pain, substernal distress, palpitations, edema in the lower extremiti es. Heart murmur varicosis claudication. Respiratory: Positive for dyspnea on exertion, but negati ve for wheezing, stridor, hemoptysis. Gastrointestinal: Poor appetite, dysphagia, indigestion, abdo dacia pain, palpitation, nausea, vomiting, abnormal stool or blood in the stool. Genitourinary: Urg ency, frequency, dysuria, nocturia, hematuria, polyuria, oliguria, unusual color urine. Musculoskele kelli: Pain, swelling, redness or heat of muscle and joint limit of motion, muscular weakness. Neurol ogic: Seizure per conversion paralyzed, tremor, incoordination. Psychiatric: Positive for anxiety, depression. Stable at this moment. PHYSICAL EXAMINATION: VITAL SIGNS: Blood pressure 130/91, pulse is 120 with a sinus tachycardia, respiratory rate 16, O2 s at 94% with room air, temperature 98.6. GENERAL: Well-developed, well-nourished without any acute distress. HEAD: Normocephalic, atraumatic. Eyes: Extraocular muscle movement intact. Oral and nasal mucosa and normal without lesion. NECK: No JVD. Neck is supple, normal range of motion. LUNGS: Clear to auscultation bilaterally, but diminished at the bases. No wheezing, rales or rhonch i noted. CARDIOVASCULAR: Regular rate and rhythm, normal S1, S2. There are no S3 or S4, no significant murmu r, hives thrill bruits noted. 2+ pulses in bilateral dorsal pedis, posterior tibial, popliteal. Car otid pulse present without bruit or thrill. No edema in bilateral lower extremities. ABDOMEN: Soft, nontender or mass to palpate, nondistended. Bowel sounds are present. MUSCULOSKELETAL: Able to move all extremities. SKIN: Warm, dry. No skin rash or lesion or bruise noted. NEUROLOGIC: Alert, oriented x4, awake, normal affect. Nonfocal. PSYCHIATRIC: Mood, affect normal. IMAGING: A 12 leads EKGs, shows sinus tachycardia with heart rate of 115 with T-wave inversion in V1 , V2, V3, and aFb and V4, V5, V6, and the left ventricular hypertrophy. LABORATORY DATA: WBC 8.4, hemoglobin 11.0, hematocrit 31.2, platelets 3.6. D-dimer 0.86. Sodium 13 7, potassium 3.2, which was covered at the ER, BUN 15, creatinine 0.82, AST 18, ALT 10, CK-MB 2.2, tr oponin is 0.038, 0.040, and 0.029. CRP the 2.[address] angio of the chest showed no evide nce of pulmonary thrombosis. PE and small bilateral pleural effusion. IMPRESSION AND PLAN: 1. New onset cardiomyopathy. The patient's echocardiogram result is pending. At this mo ment; however, due to the patient's symptoms such as dyspnea on exertion , nocturnal dyspnea, orthopn ea, and also increasing elevated BNP level and cough. She stepped back to the cardiomyopathy. She s lightly response to Lasix 20 IV. We might like to increase the Lasix. We might like to adjust the L asix dosage. 2. Indeterminate troponin level. Patient's troponin increased possibly due to chronic cough and the possible from ischemia reaction to cardiomyopathy. We like to continue to monitor on the telemetry. 3. Elevated D-dimer. At the patient's CT scan shows negative for PE. She denies any pain in the lo wer extremities with walking and No edema or swelling in the heart extremities at this moment. We wo uld like to continue to monitor. 4. Possible pneumonia. The patient on some IV antibiotic, which is managed by primary care doctor. 5. Current smoker, smoking cessation education given to the patient and her . Once, patient' s echocardiogram is revealed we like to adjust the patient medication as appropriate. I thank you very much for allowing the Cardiology service to participate in the care of the patient. We will follow along with the patient care team and make further recommendations as appropriate.
--- NOTE | 2017-08-16 12:56 | ADD-CON ---
ADDENDUM DATE OF CONSULTATION 08/14/2017 INDICATION FOR CONSULTATION: New onset congestive heart failure in 31-year-old patient . Please refer the notes already dictated by the nurse practitioner. My assessment of this 31-year-old female who has recent vaginal delivery on 07/26/2017 started develo ping congestive heart failure symptoms. She has had some lower extremity edema. She presented to em ergency room and was admitted. EKG did show congestion. Echocardiogram performed today shows ejecti on fraction of 10-15% with dilated left ventricle. She has had no previous cardiac history. She has had 5 pregnancies and 3 deliveries and has not had any previous episodes of congestive heart failure associated with this, but today there was obviously congestive heart failure symptoms on echocardiog jennifer confirms of what appears to be cardiomyopathy. She has had no history of pulmonary em boli and also the CT scan did not show any evidence of pulmonary embolus. She does have evidence of congestion on the chest x-ray. There was some question as to whether or not she may have some pneumo vonda, but I suspect this is all just congestive heart failure associated with her cardiomyopathy. She also was having some tachycardia. Her EKG shows a sinus rhythm to sinus tachycardia with T-wave inv ersions compatible with left ventricular hypertrophy. Cardiac enzymes are slightly elevated, but are indeterminate, most likely associated with the congestive heart failure. For her past medical history, social history, family history, review of systems, refer to the notes d ictated. PHYSICAL EXAMINATION: GENERAL: Reveals a young, thin female. She is alert and oriented. VITAL SIGNS: Show blood pressure to be 126/90, heart rates in the one teens to 130 range, respirator y rate is 18, O2 saturation 96% on room air. She had temperature is 99.9. HEENT: Unremarkable. Carotid pulses are present without bruits. CHEST: Clear at this time, but I do not hear any significant rales, rhonchi or wheezing. CARDIOVASCULAR: Exam reveals a tachycardia with S3 at times and is not always present though, but sh e is tachycardic. She is tachycardic all the time, but did not always hear the S3 and did not hear a ny significant murmurs, heaves, thrills, bruits or rubs. ABDOMEN: Soft and nontender. EXTREMITIES: Show no clubbing or cyanosis at this time. She had no significant edema. She had mini mal edema around the ankles. NEUROLOGIC: She appears to be intact. SKIN: Warm and dry. Her EKG as noted above shows evidence of probable left ventricular hypertrophy with T-wave inversions , but no acute ST segment changes that would indicate ischemia. LABORATORY DATA: Showed a BNP of 1642 with the cardiac enzymes of 0.038 increase up to 0.04 and then back down to 0.029; her creatinine is 0.82, potassium is 3.2. Her D-dimer was elevated at 0.86. He moglobin is 11.0. IMPRESSION AND PLAN: 1. cardiomyopathy. She will need to undergo diuresis with Lasix as well as being started on SANDRA inhibitors and beta blockers. We will need to follow the potassium very carefully. I did ex plain to her that sometimes these will improve, but not always 50% chance that she will get improveme nt with her cardiomyopathy. She was informed that she should not have any further pregnancies as it may become worse the next time she has a . If she does not improve, she may need to undergo eventually AICD implant or possible transplant due to the severe cardiomyopathy, ejection fraction i s estimated at 10-15%. At this time, [place] her and she was evicted from her apartment where she was living before since they were unable to pay the rent on an adequate time basis. 2. History of tobacco abuse. She smoked for many years. She will be encouraged strongly to stop sm oking altogether. At this time, her prognosis is certainly guarded. We will try aggressive medical management to see whether or not we can improve her cardiomyopathy. 3. History of anxiety and depression. This will be dealt with by the primary care physicians.
--- NOTE | 2017-08-16 13:46 | PDOC.CTH ---
<Nelly Wayne - Last Filed: 08/16/17 13:52> Cardiology Progress Note - Subjective The pt seen and examined. No overnight events. No cardiac complaints. She has ALFARO and her HR increases up to 130s with exercise. - Objective Vital Signs Temp Pulse Pulse Pulse Resp BP BP 08/16/17 10:54 123 H 104 H 120/74 115/76 08/16/17 10:40 98.6 F 98 19 08/16/17 08:45 97.9 F 92 14 08/16/17 05:34 08/16/17 03:56 98.4 F 62 20 08/16/17 03:27 98.0 F 84 25 H BP BP Pulse Ox Pulse Ox Pulse Ox 08/16/17 10:54 99 97 08/16/17 10:40 115/76 99 08/16/17 08:45 104/75 96 08/16/17 05:34 96 08/16/17 03:56 140/81 96 08/16/17 03:27 114/77 94 L Weight 115 lb 15.04 oz 08/15/17 08/16/17 08/17/17 06:59 06:59 06:59 Intake Total 680 240 Output Total 1550 700 Balance -870 -460 - Physical Examination General/Neuro: alert & oriented x3 Neck: no JVD present Lungs: CTA Heart: RRR Abdomen: soft Extremities: other: (No edema) - Telemetry Telemetry Rhythm: SR 90-100s - Labs Result Diagrams: 08/15/17 05:04 08/15/17 05:04 Troponin/CKMB CK-MB (CK-2) 2.2 ng/mL (0-6.6) 08/14/17 04:44 Troponin I 0.029 ng/mL (< 0.028) H 08/14/17 12:47 - Assessment/Plan 1. Acute on Chronic Systolic HF - improving with BBlocker, SANDRA, Lasix, and Spironolactone. cont. to monitor 2. CMY - Echo on 08/14/17 showed EF 10-15%, dilated LV, dilated LA, mild-mod MR, and mild TR. The pt will d/c with LifeVest. 3. Tachycardia -Increase Coreg from Coreg 3.125mg to 6.25mg BID; cont. to monitor on tele 4. Anemia - cont. to monitor 5. HypoKalemia - managed by PCP 6. PNA - on antibiotics by PCP 7. Current smoker - Smoking cessation education given to the pt MAR reviewed * Since she is on SANDRA, she is not breast feeding to her baby. Review of Systems - Review of Systems Constitutional: reports: no symptoms reported EENTM: reports: no symptoms reported Respiratory: reports: no symptoms reported Cardiac (ROS): reports: no symptoms reported ABD/GI: reports: no symptoms reported : reports: no symptoms reported <Jocelyn Chery - Last Filed: 08/16/17 17:47> Cardiology Progress Note - Objective Vital Signs Temp Pulse Pulse Pulse Resp BP BP 08/16/17 15:05 98.4 F 91 21 H 08/16/17 10:54 123 H 104 H 120/74 115/76 08/16/17 10:40 98.6 F 98 19 08/16/17 08:45 97.9 F 92 14 BP BP Pulse Ox Pulse Ox Pulse Ox 08/16/17 15:05 98/65 99 08/16/17 10:54 99 97 08/16/17 10:40 115/76 99 08/16/17 08:45 104/75 96 Weight 115 lb 15.04 oz 08/15/17 08/16/17 08/17/17 06:59 06:59 06:59 Intake Total 680 240 Output Total 1550 700 Balance -870 -460 - Labs Result Diagrams: 08/15/17 05:04 08/15/17 05:04 Troponin/CKMB CK-MB (CK-2) 2.2 ng/mL (0-6.6) 08/14/17 04:44 Troponin I 0.029 ng/mL (< 0.028) H 08/14/17 12:47 - Assessment/Plan pt. seen and eval. by me. I agree with the A/P by the TRANSONIC ENGINEER. She is feeling better. The Life-Vest should be placed tomorrow. Continue aggressive medical treatment for the CMY.
[2017-08-16] MEDS ORDERED: Carvedilol 3.125 MG TAB PO SCH (13:48)
[2017-08-16] MEDS ORDERED: Carvedilol 6.25 MG TAB PO SCH ×2 (14:00→21:00)
[2017-08-16] MEDS: Nicotine 21 MG PATCH TOP SCH (18:25)
[2017-08-16] MEDS: Lisinopril 2.5 MG TAB PO SCH (20:49)
[2017-08-17 05:02] VITALS: TEMP 97.9
[2017-08-17] MEDS: Furosemide 20 MG/2 ML VIAL SLOW IVP SCH (05:47)
[2017-08-17] MEDS ORDERED: Carvedilol 6.25 MG TAB PO SCH (08:00)
[2017-08-17] MEDS: Spironolactone 25 MG TAB PO SCH (08:25)
[2017-08-17] MEDS: Potassium Chloride 20 MEQ TAB PO SCH (08:25)
[2017-08-17] MEDS: Prenatal Vitamin 1 TAB PO SCH (08:26)
[2017-08-17] MEDS: Magnesium Oxide 400 MG TAB PO SCH (08:26)
[2017-08-17] MEDS: Saccharomyces boulardii 250 MG CAP PO SCH (08:26)
[2017-08-17] MEDS: Enoxaparin Sodium 40 MG/0.4 ML SYRINGE SC SCH (08:27)
--- NOTE | 2017-08-17 10:33 | DIS ---
DATE OF ADMISSION: 08/14/2017 DATE OF DISCHARGE: 08/17/2017 PRIMARY CARE PHYSICIAN: Ed Thomas D.O. DISCHARGE DISPOSITION: Home. PRIMARY DISCHARGE DIAGNOSES: New onset acute systolic heart failure, demand ischemia of myocardium, hypokalemia, cardiomyopathy. SECONDARY DISCHARGE DIAGNOSES: Anxiety, depression, tobacco abuse disorder, and normocytic normochro ivonne anemia. PRIMARY PROCEDURE/OPERATION: None. RADIOLOGICAL INVESTIGATION: Echocardiography showed EF 10%-15%. CT angiography was negative for pul monary embolism which was consistent with pulmonary vascular congestion. Chest x-ray was also consis tent with pulmonary vascular congestion. SIGNIFICANT LABORATORY DATA: WBC 6.5, hemoglobin 10.7, platelets 323, D-dimer 0.86. Sodium 137, pot assium 3.4, BUN 13, creatinine 0.90. LFT normal. Troponin 0.029. Urinalysis unremarkable. Blood c ulture negative. DISCHARGE MEDICATIONS: Tylenol #3 one or two tablets q.4 hourly p.r.n., Coreg 6.25 mg p.o. b.i.d., L asix 20 mg p.o. b.i.d., lisinopril 2.5 mg p.o. at bedtime, magnesium oxide 400 mg p.o. daily, prenata l vitamin 1 tablet p.o. daily, potassium chloride 20 mEq p.o. daily, Zoloft 50 mg p.o. at bedtime, Al dactone 25 mg p.o. daily. CONTRAINDICATIONS: None. CODE STATUS: FULL CODE. INPATIENT CENTER DIRECTOR: Dr. Chery was following while in hospital. TEST RESULTS PENDING ON DISCHARGE: None. ALLERGIES: No known drug allergy. DISCHARGE PLAN: Post hospital, patient will follow up with primary care physician. Patient has appo intment with cardiac rehab on 08/25/2017 at 8:30 a.m. The patient has appointment with Dr. Chery on 0 08/25/2017 at 2:45 p.m. HOSPITAL COURSE: A 31-year-old female who had delivery, which was normal vaginal delivery on 018. Subsequently, patient was slowly experiencing dyspnea on exertion which has progressed to ortho pnea, PND, and dyspnea even at rest. She was brought to ER. At that time, she had routine blood [place] t done which showed elevated BNP and D-dimer. That is why CT angio was done which was negative for p ulmonary embolism, but it was consistent with pulmonary vascular congestion. Initially, we also susp ected possible atypical infection in the lungs and that is why in the emergency room, patient also re ceived Zosyn and vancomycin. After admission, we continued Zosyn and changed to Augmentin, but we ar e not suspecting any infection in this particular patient anymore and that is why we discontinued ant ibiotic therapy. Mainly this patient is having new onset systolic heart failure which was confirmed with echocardiogra phy, her EF is 10%-15%. 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 With that therapy, patient became more clinically stable. Her dyspnea completely improved. She was not requiring any oxygen and she did not have any orthopnea or leg swe lling. Given very low EF, Cardiology recommended LifeVest before discharge and that we are arranging today. Patient is currently euvolemic and the patient is instructed to follow with cardiac rehabilitation a nd Cardiology as an outpatient basis for repeat echocardiography and then AICD versus other procedure will be decided based on followup visit. At this point, all new medication prescription sent to her pharmacy. The patient is seen and examine d at bedside today. Currently, the patient is asymptomatic. She does not have any shortness of luis a th. She is on room air. PHYSICAL EXAMINATION: VITAL SIGNS: Today, temperature 97.9, pulse 98, respiratory rate 16, saturation 100% on room air, bl ood pressure 104/70. Weight 99 pounds. GENERAL: The patient is currently alert, awake, no acute distress. HEAD: Normocephalic, atraumatic. EYES: Pupils round, reactive to light. Extraocular muscle intact. ENT: Oropharynx within normal limits. Moist mucous membranes. No oral lesion, no pharyngeal erythe ma, no exudate. NECK: Supple, no JVD, no thyromegaly. LUNGS: Clear to auscultation without any rhonchi or rales. CARDIAC: S1, S2 regular without any murmur. ABDOMEN: Soft and benign. EXTREMITIES: No edema. NEUROLOGIC: Nonfocal examination. Review of systems reviewed with her and negative. [facility]
[2017-08-17] MEDS: Famotidine 20 MG TAB PO SCH (11:01)
[2017-08-17 11:53] VITALS: BP 110/58
--- NOTE | 2017-08-17 12:45 | PDOC.CTH ---
Cardiology Progress Note - Subjective The pt seen and examined. No overnight events. No cardiac complaints. - Objective Vital Signs Temp Pulse Pulse Pulse Resp BP BP 08/17/17 11:49 97.9 F 101 H 16 08/17/17 08:42 92 98 118/76 08/17/17 08:26 104/70 08/17/17 08:00 97.9 F 98 16 08/17/17 04:00 97.9 F 100 20 BP BP BP Pulse Ox Pulse Ox Pulse Ox 08/17/17 11:49 110/58 L 99 08/17/17 08:42 114/72 98 99 08/17/17 08:26 08/17/17 08:00 104/70 100 08/17/17 04:00 100/54 L 96 Weight 99 lb 08/16/17 08/17/17 08/18/17 06:59 06:59 06:59 Intake Total 240 750 Output Total 700 1000 Balance -460 -250 - Physical Examination General/Neuro: alert & oriented x3 Neck: no JVD present Lungs: CTA Heart: RRR Abdomen: soft Extremities: other: (No edema) - Telemetry Telemetry Rhythm: SR and ST 90-100s - Labs Result Diagrams: 08/15/17 05:04 08/15/17 05:04 Troponin/CKMB CK-MB (CK-2) 2.2 ng/mL (0-6.6) 08/14/17 04:44 Troponin I 0.029 ng/mL (< 0.028) H 08/14/17 12:47 - Assessment/Plan 1. Acute on Chronic Systolic HF - improving with BBlocker, SANDRA, Lasix, and Spironolactone. Cont. to monitor 2. CMY - Echo on 08/14/17 showed EF 10-15%, dilated LV, dilated LA, mild-mod MR, and mild TR. The pt will d/c with LifeVest. 3. Tachycardia -stable with Coreg 6.25mg BID; cont. to monitor on tele 4. Anemia - cont. to monitor 5. HypoKalemia - managed by PCP 6. PNA - on antibiotics by PCP 7. Current smoker - Smoking cessation education given to the pt MAR reviewed * Since she is on SANDRA, she is not breast feeding to her baby. * From cardiac standpoint, the pt is stable to d/nancy. Continue aggressive medical treatment for the CMY. The pt giovani f/u with Dr Chery' office within 2-4 wks and Echo within 1 month. Review of Systems - Review of Systems Constitutional: reports: no symptoms reported EENTM: reports: no symptoms reported Respiratory: reports: no symptoms reported Cardiac (ROS): reports: no symptoms reported ABD/GI: reports: no symptoms reported : reports: no symptoms reported Musculoskeletal: reports: no symptoms reported
== END 2017-08-17 13:52 | disposition home or self-care (01) | DRG 776 ==
LOC: ERS 04:08 → ERHOLD 08:52 → 2NO 11:24
PROVIDERS: ADMIT Internal Medicine; ATTEND Internal Medicine
DX: O90.3 Peripartum cardiomyopathy (principal); I50.21 Acute systolic (congestive) heart failure; I24.8 Other forms of acute ischemic heart disease; I34.1 Nonrheumatic mitral (valve) prolapse; O99.89 Other specified diseases and conditions complicating pregnancy, childbirth and the puerperium; O90.81 Anemia of the puerperium; E87.6 Hypokalemia; D64.9 Anemia, unspecified; F41.8 Other specified anxiety disorders; F17.210 Nicotine dependence, cigarettes, uncomplicated; Z82.49 Family history of ischemic heart disease and other diseases of the circulatory system; Z79.899 Other long term (current) drug therapy
CPT/HCPCS: 36415; 71045; 71275; 80053; 81003; 81015; 82553; 83735; 83880; 84484; 84550; 84703; 85025; 85379; 85652; 86140; 87040; 93005; 93306; 93798; 96361; 96365; 96367; 96372; 96376; A4216; J1650; J1940; J2543; J3370; J7050

== ENCOUNTER 2021-12-05 09:53 | Outpatient (CLI) | payer OTHER ==
[2021-12-05 11:15] LABS: #Basophils 0.1 10x3/uL (0.0-0.2); #Eosinphils 0.1 10x3/uL (0.0-0.5); #Monocytes 0.5 10x3/uL (0.0-1.1); #Neutrophils 3.1 10x3/uL (1.5-8.4); %Basophils 0.9 % (0.0-2.0); %Eosinophils 1.6 % (0.0-6.0); %Lymphocytes 35.5 % (18.0-47.0); %Monocytes 8.8 % (0.0-10.0); %Neutrophils 52.9 % (40.0-75.0); Hemoglobin 13.3 g/dL (12.0-15.5); Mean Corpuscular HGB CONC 34.4 g/dL (32.0-36.0); Mean Corpuscular Hemoglobin 30.9 pg (27.0-33.0); Mean Corpuscular Volume 89.8 fl (81.6-98.3); Mean Platelet Volume 10.2 fl (7.4-10.4); Platelet Count 285 10x3/uL (150-450); RBC Distribution Width 12.9 % (11.5-14.5); Red Blood Cell (RBC) Count 4.31 10x6/uL (3.90-5.03); White Blood Cell (WBC) Count 5.8 10x3/uL (3.5-10.5)
[2021-12-05 11:28] LABS: BHCG - Serum Negative (NEGATIVE); Pregs Control Background? CLEAR/WHITE (CLR/WHITE); Pregs Control Bar Appear? YES (CONTROL BAR)
[2021-12-05 11:36] LABS: Anion Gap 14 mmol/L (10-20); BUN (Urea Nitrogen) 10 mg/dL (7.0-18.7); Calc. Creatinine Clearance 0 mL/min (70-130); Calcium 9.2 mg/dL (7.8-10.44); Carbon Dioxide 21 mmol/L (22-29); Chloride 108 mmol/L (98-107); Estimated GFR 97; Glucose 115 mg/dL (70-105); Potassium 4.5 mmol/L (3.5-5.1); Sodium 138 mmol/L (136-145)
== END 2021-12-05 09:54 | disposition home or self-care (01) ==
LOC: LABBT 09:53
PROVIDERS: ATTEND Surgery
DX: Z01.812 Encounter for preprocedural laboratory examination (principal); N63.20 Unspecified lump in the left breast, unspecified quadrant; Z20.822 Contact with and (suspected) exposure to COVID-19
CPT/HCPCS: 80048; 84703; 85025; 87811

== ENCOUNTER 2021-12-09 06:42 | Day surgery (SDC) | payer OTHER ==
[2021-12-05 14:42] VITALS: BMI 18.8
[2021-12-09] MEDS ORDERED: Sodium Bicarbonate 2.5 MEQ/5 ML VIAL ONE (07:29)
[2021-12-09] MEDS ORDERED: Lidocaine 1% PF 5 ML VIAL ONE ×2 (07:29→11:32)
[2021-12-09] MEDS ORDERED: Lidocaine 1% MPF 2 ML VIAL ONE (09:07)
[2021-12-09] MEDS ORDERED: CEFAZOLIN 2 GM VIAL ONE (09:07)
[2021-12-09] MEDS ORDERED: Sodium Chloride 0.9% 100 ML ONE (09:07)
[2021-12-09] MEDS ORDERED: fentaNYL Citrate/PF 100 MCG/2 ML SYRINGE ONE (11:10)
[2021-12-09] MEDS ORDERED: Bupivacaine/Epinephrine 0.25% 30 ML VIAL ONE (11:10)
[2021-12-09] MEDS ORDERED: Ondansetron PF 4 MG/2 ML Vial ONE (11:32)
[2021-12-09] MEDS ORDERED: Ketorolac Tromethamine 30 MG/ML VIAL ONE (11:32)
[2021-12-09] MEDS ORDERED: Dexamethasone 20 MG/5 ML VIAL ONE (11:32)
[2021-12-09] MEDS ORDERED: PROPOFOL 200 MG/20 ML VIAL ONE (11:32)
== END 2021-12-09 13:30 | disposition home or self-care (01) ==
LOC: SDC 06:42
PROVIDERS: ATTEND Surgery
PROC: 0HBU0ZZ Excision of Left Breast, Open Approach (ICD-10-PCS; principal; 2021-12-09)
DX: D24.2 Benign neoplasm of left breast (principal); N60.22 Fibroadenosis of left breast; I42.8 Other cardiomyopathies; I50.9 Heart failure, unspecified; F17.210 Nicotine dependence, cigarettes, uncomplicated; Z79.899 Other long term (current) drug therapy; Z91.048 Other nonmedicinal substance allergy status
CPT/HCPCS: 19285; 76098; 88305; J0690; J1100; J1885; J2405; J2704; J3490

== ENCOUNTER 2023-01-07 12:26 | Outpatient (CLI) | payer OTHER | END 2023-01-07 12:27 | disposition home or self-care (01) | LOC: RAD 12:26 | PROVIDERS: ATTEND Nurse Practitioner Family | DX: M54.50 Low back pain, unspecified (principal); G89.29 Other chronic pain; M41.9 Scoliosis, unspecified | CPT/HCPCS: 72100 ==

== ENCOUNTER 2023-03-03 13:32 | Outpatient (CLI) | payer OTHER | END 2023-03-03 13:33 | disposition home or self-care (01) | LOC: RAD 13:32 | PROVIDERS: ATTEND Nurse Practitioner Family | DX: M54.2 Cervicalgia (principal); M54.6 Pain in thoracic spine; M41.9 Scoliosis, unspecified; M47.812 Spondylosis without myelopathy or radiculopathy, cervical region | CPT/HCPCS: 72052; 72072 ==

== ENCOUNTER 2023-06-02 16:50 | Emergency (ER) | payer OTHER ==
[2023-06-02] MEDS ORDERED: Ondansetron PF 4 MG/2 ML Vial ONE (17:40)
[2023-06-02] MEDS ORDERED: Ketorolac Tromethamine 30 MG (1 mL) VIAL ONE (18:06)
[2023-06-02 18:17] LABS: #Monocytes 0.7 thou/uL (0.11-0.59); #Neutrophils 4.4 thou/uL (1.40-6.50); %Basophils 0.3 % (0.0-1.0); %Lymphocytes 24.9 % (21.0-51.0); %Monocytes 10.3 % (0.0-10.0); %Neutrophils 64.4 % (42.0-75.0); Hematocrit 43.6 % (36.0-47.0); Mean Corpuscular HGB CONC 34.4 g/dL (32.0-36.0); Mean Corpuscular Hemoglobin 31.4 pg (27.0-31.0); Mean Corpuscular Volume 91.4 fl (78.0-98.0); Mean Platelet Volume 10.2 fL (7.4-10.4); Platelet Count 149 10x3/uL (130-400); RBC Distribution Width 13.3 % (11.5-14.5); Red Blood Cell (RBC) Count 4.77 mill/uL (4.20-5.40); White Blood Cell (WBC) Count 6.9 10x3/uL (4.8-10.8)
[2023-06-02 18:44] LABS: ALT (SGPT) 147 U/L (8-55); AST (SGOT) 128 U/L (5-34); Albumin 4.4 g/dL (3.5-5.0); Alkaline Phosphatase 55 U/L (40-110); Anion Gap 18 mmol/L (10-20); BUN (Urea Nitrogen) 13 mg/dL (7.0-18.7); Bilirubin, Total 0.3 mg/dL (0.2-1.2); Calc. Creatinine Clearance 0 mL/min (70-130); Calcium 8.6 mg/dL (7.8-10.44); Carbon Dioxide 19 mmol/L (22-29); Chloride 101 mmol/L (98-107); Estimated GFR 91; Globulin 2.9 g/dL (2.4-3.5); Glucose 61 mg/dL (70-105); Potassium 3.9 mmol/L (3.5-5.1); Protein, Total 7.3 g/dL (6.0-8.3); Sodium 134 mmol/L (136-145)
== END 2023-06-02 21:33 | disposition home or self-care (01) ==
LOC: ERS 16:50
DX: U07.1 COVID-19 (principal); E86.0 Dehydration; J11.1 Influenza due to unidentified influenza virus with other respiratory manifestations; I10 Essential (primary) hypertension; F17.210 Nicotine dependence, cigarettes, uncomplicated
CPT/HCPCS: 71045; 80053; 85025; 96361; 96374; 96375; J1885; J2405

== ENCOUNTER 2025-03-01 16:50 | Emergency (ER) | payer OTHER ==
[2025-03-01 17:51] LABS: #Basophils 0.06 10x3/uL (0.0-0.2); #Eosinophils 0.10 10x3/uL (0.0-0.7); #Monocytes 0.61 10x3/uL (0.11-0.59); #Neutrophils 2.86 10x3/uL (1.40-6.50); %Basophils 0.9 % (0.0-1.0); %Eosinophils 1.5 % (0.0-10.0); %Lymphocytes 46.6 % (21.0-51.0); %Monocytes 8.9 % (0.0-10.0); %Neutrophils 42.0 % (42.0-75.0); Hematocrit 38.3 % (36.0-47.0); Hemoglobin 13.0 g/dL (12.0-16.0); Mean Corpuscular Hemoglobin 30.5 pg (27.0-31.0); Mean Corpuscular Volume 89.9 fL (78.0-98.0); Platelet Count 247 10x3/uL (130-400); Red Blood Cell (RBC) Count 4.26 mill/uL (4.20-5.40); White Blood Cell (WBC) Count 6.82 10x3/uL (4.8-10.8)
[2025-03-01 18:12] LABS: ALT (SGPT) 14 U/L (Less than 34); AST (SGOT) 16 U/L (11-34); Albumin 4.1 g/dL (3.1-4.5); Alkaline Phosphatase 57 U/L (40-110); Anion Gap 11 mmol/L (10-20); BUN (Urea Nitrogen) 4 mg/dL (7.0-18.7); Bilirubin, Total 0.4 mg/dL (0.3-1.2); Calc. Creatinine Clearance 0 mL/min (70-130); Calcium 8.7 mg/dL (7.8-10.44); Carbon Dioxide 24 mmol/L (22-29); Chloride 107 mmol/L (98-107); Globulin 2.6 g/dL (2.4-3.5); Glucose 80 mg/dL (70-105); Potassium 3.9 mmol/L (3.5-5.1); Sodium 138 mmol/L (136-145)
== END 2025-03-01 19:39 | disposition home or self-care (01) ==
LOC: ERS 16:50
DX: R07.9 Chest pain, unspecified (principal); I11.0 Hypertensive heart disease with heart failure; I50.9 Heart failure, unspecified; F17.210 Nicotine dependence, cigarettes, uncomplicated; Z79.899 Other long term (current) drug therapy
CPT/HCPCS: 71045; 80053; 83880; 84484; 85025; 93005